=== PATIENT | female | born 1935 | race Caucasian/White ===

== ENCOUNTER 2016-12-11 07:22 | Day surgery (SDC) | payer MEDICARE, OTHER ==
[~2016-12-11] VITALS: Ht 170.2 cm; Wt 84.6 kg
[~2016-12-11 07:22] MED LIST: ASPI-558 PO; CALC600T86 PO; CITA-50 PO; FAMO20TA79 PO; FISH1CAP29 PO; LEVO75TA10 PO; LIDOCAINE 1% (10mg/ml) 2ml SDV INJ ONE; LR 1,000 ML IV SCH; MULT-795 PO
--- OUTSIDE RECORDS SUMMARY | 2016-12-11 07:26 | XMS REPORT | Referral Summary ---
Author Author [facility] Organization [facility] Address Unknown Phone Unavailable Care Team Providers Care Bulk Plant Agent Name Role Phone Oren Webster Primary Care Physician [phone] Encounter [facility] [id number] Date(s): 06/27/15 - 06/27/15 [facility] [address] [place] [address] Discharge Diagnosis: Facial neuritis Discharge Diagnosis: Fatigue Discharge Diagnosis: Oropharyngeal dysphagia Discharge Diagnosis: Hyperthyroidism Discharge Diagnosis: Right knee pain Discharge Diagnosis: GERD (gastroesophageal reflux disease) Discharge Disposition: 01-Home or Self Care Attending Physician: Oren Webster DO Admitting Physician: Oren Webster DO Vital Signs Most recent to 1 oldest [Reference Range]: Temperature Tympanic 36.2 degC [36.6-38.1 degC] *LOW* (06/27/15 1:06 PM) Peripheral Pulse 74 bpm Rate [60-100 bpm] (06/27/15 1:06 PM) Blood Pressure 145/81 mmHg [90-140/60-90 mmHg] *HI* (06/27/15 1:06 PM) Problem List Condition Effective Dates Status Health Status Informant Thyroid Active disease(Confirmed) Hyperthyroidism(Conf 1979 Active [facility]) GERD Active (gastroesophageal reflux disease)(Confirmed) Chicken 1942 Active pox(Confirmed) Allergies, Adverse Reactions, Alerts No Known Allergies Medications amoxicillin 500 mg oral capsule See Instructions, TAKE 4 CAPSULES BY MOUTH 2 HOURS PRIOR TO DENTAL APPOINTMENT , # 4 caps, 2 Refill(s), eRx: [facility] #[id number], TAKE 4 CAPSULES BY MOUTH 2 HOURS PRIOR TO DENTAL APPOINTMENT Start Date: 10/19/14 Status: Ordered aspirin buffered 81 mg oral tablet 1 tabs, Oral, Daily, 0 Refill(s) Start Date: 06/01/14 Status: Ordered Centrum Silver oral tablet 1 tabs, Oral, Daily, 0 Refill(s) Start Date: 06/01/14 Status: Ordered citalopram 20 mg oral tablet 20 mg 1 tabs, Oral, Daily, X 90 days, # 90 tabs, 3 Refill(s), Pharmacy: [facility] #[id number], 1 tabs Oral Daily,x90 days Start Date: 06/27/15 Stop Date: 06/21/16 Status: Ordered ferrous sulfate Oral, 0 Refill(s) Start Date: 06/01/14 Status: Ordered Melatonin Oral, Bedtime (once a day), as needed for insomnia, 0 Refill(s) Start Date: 06/02/14 Status: Ordered omeprazole 20 mg oral delayed release capsule 1 caps, Oral, Daily, # 90 caps, 3 Refill(s), Pharmacy: [facility] #[id number] , 1 caps Oral Daily Start Date: 06/02/14 Status: Ordered predniSONE 20 mg oral tablet 20 mg 1 tabs, Oral, Daily, X 5 days, # 5 tabs, 0 Refill(s), Pharmacy: [facility] #[id number], 1 tabs Oral Daily,x5 days Start Date: 06/27/15 Stop Date: 07/02/15 Status: Ordered Synthroid 100 mcg (0.1 mg) oral tablet See Instructions, TAKE ONE TABLET BY MOUTH EVERY DAY, # 90 tabs, 1 Refill(s), eRx: [facility] #[id number], TAKE ONE TABLET BY MOUTH EVERY DAY Start Date: 02/19/15 Status: Ordered Results Hematology Most recent to 1 oldest [Reference Range]: WBC [4.8-10.8 8.4 10*3/uL 10*3/uL] (06/27/15 2:20 PM) RBC [4.00-5.20] 4.16 (06/27/15 2:20 PM) Hgb [12.0-16.0 13.8 gm/dL gm/dL] (06/27/15 2:20 PM) Hct [37.0-47.0 %] 41.2 % (06/27/15 2:20 PM) MCV [82.0-99.0 fL] 99.0 fL (06/27/15 2:20 PM) MCH [27.0-32.0 pg] 33.2 pg *HI* (06/27/15 2:20 PM) MCHC [32.0-36.0 33.5 gm/dL gm/dL] (06/27/15 2:20 PM) RDW [11.5-14.5 %] 12.5 % (06/27/15 2:20 PM) Platelet [150-400 269 10*3/uL 10*3/uL] (06/27/15 2:20 PM) MPV [8.8-14.8 fL] 11.2 fL (06/27/15 2:20 PM) Immature 0.2 % Granulocytes (06/27/15 2:20 PM) [0.0-1.0 %] Neutrophils [51-75 67 % %] (06/27/15 2:20 PM) Lymphocytes [20-46 22 % %] (06/27/15 2:20 PM) Monocytes [4-11 %] 9 % (06/27/15 2:20 PM) Eosinophils [0-4 %] 2 % (06/27/15 2:20 PM) Basophils [0-2 %] 1 % (06/27/15 2:20 PM) Neutro Absolute 5.56 10*3 [1.90-7.00 10*3] (06/27/15 2:20 PM) Lymph Absolute 1.83 10*3 [0.80-3.30 10*3] (06/27/15 2:20 PM) [place] Absolute 0.76 10*3 [0.30-1.00 10*3] (06/27/15 2:20 PM) Eos Absolute 0.15 10*3 [0.00-0.50 10*3] (06/27/15 2:20 PM) Baso Absolute 0.04 10*3 [0.00-0.20 10*3] (06/27/15 2:20 PM) Chemistry Most recent to 1 oldest [Reference Range]: Sodium Lvl [135-144 140 mEq/L mEq/L] (06/27/15 2:20 PM) Potassium Lvl 5.1 mEq/L [3.5-5.2 mEq/L] (06/27/15 2:20 PM) Chloride [99-111 105 mEq/L mEq/L] (06/27/15 2:20 PM) CO2 [22-31 mEq/L] 27 mEq/L (06/27/15 2:20 PM) AGAP [3-20] 8 (06/27/15 2:20 PM) BUN [10-20 mg/dL] 11 mg/dL (06/27/15 2:20 PM) Glucose Lvl [70-99 105 mg/dL mg/dL] *HI* (06/27/15 2:20 PM) Creatinine Lvl 0.84 mg/dL [0.57-1.11 mg/dL] (06/27/15 2:20 PM) eGFR [>60 mL/min] >60 mL/min 1 (06/27/15 2:20 PM) Calcium Lvl 9.9 mg/dL [8.9-10.5 mg/dL] (06/27/15 2:20 PM) Iron [50-170 mcg/dL] 100 mcg/dL (06/27/15 2:20 PM) Vitamin B12 Lvl 1222 pg/mL [213-816 pg/mL] *HI* (06/27/15 2:20 PM) Folate Lvl [7.0-31.4 20.0 ng/mL ng/mL] (06/27/15 2:20 PM) T4 Free [0.7-1.5 1.3 ng/dL ng/dL] (06/27/15 2:20 PM) TSH with Reflex Free 0.28 T4 [0.35-4.94] *LOW* (06/27/15 2:20 PM) 1Result Comment: Multiply eGFR results by 1.21 for race. Immunizations Vaccine Date Refusal Reason influenza virus vaccine, inactivated1 06/02/14 influenza virus vaccine, live 05/05/13 influenza virus vaccine, live 05/03/12 pneumococcal 13-valent conjugate vaccine 06/02/14 zoster vaccine live 05/03/12 1Result Comment: [06/02/2014] see scaned doc Procedures Procedure Date Related Diagnosis Body Site Colonoscopy1 02/27/11 Esophagogastroduodenoscopy/WNL 09/22/00 Biopsy of breast/right 1Cscope WNL, mod diverticula, fam hx colon ca,per hx adenomatous polyps, repeat cscope in 5yrs 03/26/2006[facility] Social History Social History Type Response Smoking Status Never smoker Assessment and Plan Extracted from: Title: Complex office visit Author: Oren Webster DO Date: 06/27/15 Assessment/Plan Facial neuritis 1. 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 This was discussed in detail with the patient, all questions were answered. 2. We'll start her on prednisone 20 mg daily for 5 days. 3. If this persists we may consider gabapentin 300 mg daily for 2-3 months. Ordered: Office Visit Level 5 Est 60716 Fatigue 1. Her fatigue is likely multifactorial. 2. We'll check CBC to rule out anemia, iron level to rule out iron deficiency, B-12 and folate level to rule out mineral deficiency, vitamin D level to rule out vitamin deficiency. Once we get results we will treat her accordingly. Ordered: predniSONE, 20 mg 1 tabs, Oral, Daily, X 5 days, # 5 tabs, 0 Refill(s), Pharmacy: [facility] #[id number], 1 tabs Oral Daily,x5 days Basic Metabolic Panel CBC w/ Differential Folate Level Iron Level Office Visit Level 5 Est 74418 TSH with Reflex Free T4 Vitamin B12 Level Vitamin D 25 Hydroxy Level GERD (gastroesophageal reflux disease) 1. Diet modification discussed in detail with the patient. 2. Continue with current treatment for acid reflux. 3. Follow-up if worsening presentation. Ordered: Office Visit Level 5 Est 42564 Hyperthyroidism 1. We'll check her TSH and adjust her medication accordingly. Ordered: Office Visit Level 5 Est 42399 Oropharyngeal dysphagia 1. We will check B-12 to rule out deficiency. 2. If this persists then we plan on sending her for barium swallow for further evaluation. Right knee pain Pathophysiology of this presentation, and differential diagnosis, discussed in detail with the patient. All questions were answered. 1. Clinical finding consistent with degenerative arthritis of the knee. 2. Recommended Tylenol at thousand milligrams twice a day. 3. If symptoms persist we may consider knee injection. Patient voiced understanding. Over 45 minutes was spent udiy-li-uarf with this patient addressing all her concerns. Orders: citalopram, 20 mg 1 tabs, Oral, Daily, X 90 days, # 90 tabs, 3 Refill( s), Pharmacy: [facility] #[id number], 1 tabs Oral Daily,x90 days
--- OUTSIDE RECORDS SUMMARY | 2016-12-11 07:27 | XMS REPORT | Referral Summary ---
Author Author [facility] Organization [facility] Address Unknown Phone Unavailable Care Team Providers Care Executive Sales Assistant Name Role Phone Oren Webster Primary Care Physician [phone] Encounter [facility] Date(s): 08/28/16 - 08/28/16 [facility] [address] [place] [address] Discharge Diagnosis: Well woman exam Discharge Diagnosis: Adult onset hypothyroidism Discharge Diagnosis: Mixed anxiety and depressive disorder Discharge Disposition: 01-Home or Self Care Attending Physician: Oren Webster DO Admitting Physician: Oren Webster DO Vital Signs Most recent to 1 oldest [Reference Range]: Peripheral Pulse 86 bpm Rate [60-100 bpm] (08/28/16 1:21 PM) Respiratory Rate 18 br/min [14-20 br/min] (08/28/16 1:21 PM) Blood Pressure 132/90 mmHg [90-140/60-90 mmHg] (08/28/16 1:21 PM) SpO2 98 % (08/28/16 1:21 PM) Problem List Condition Effective Dates Status Health Status Informant Thyroid < 06/01/14 Resolved disease(Confirmed) Hyperthyroidism(Conf 1979 - 06/01/14 Resolved [facility]) GERD Active (gastroesophageal reflux disease)(Confirmed) Chicken 1942 - 06/01/14 Resolved pox(Confirmed) Allergies, Adverse Reactions, Alerts No Known Allergies Medications aspirin buffered 81 mg oral tablet 1 tabs, Oral, Daily, 0 Refill(s) Start Date: 06/01/14 Status: Ordered Centrum Silver oral tablet 1 tabs, Oral, Daily, 0 Refill(s) Start Date: 06/01/14 Status: Ordered citalopram 20 mg oral tablet 20 mg 1 tabs, Oral, Daily, # 90 tabs, 3 Refill(s), Pharmacy: [facility] # [id number], 1 tabs Oral Daily,x90 days Start Date: 08/28/16 Stop Date: 08/23/17 Status: Ordered ferrous sulfate Oral, 0 Refill(s) Start Date: 06/01/14 Status: Ordered levothyroxine 75 mcg (0.075 mg) oral tablet 75 mcg 1 tabs, Oral, Daily, X 90 days, # 90 tabs, 3 Refill(s), Pharmacy: [facility] #[id number], 1 tabs Oral Daily,x90 days Start Date: 08/28/16 Stop Date: 08/23/17 Status: Ordered Melatonin Oral, Bedtime (once a day), as needed for insomnia, 0 Refill(s) Start Date: 06/02/14 Status: Ordered Results Hematology Most recent to 1 oldest [Reference Range]: WBC [4.8-10.8 7.6 10*3/uL 10*3/uL] (08/28/16 2:28 PM) RBC [4.00-5.20] 4.18 (08/28/16 2:28 PM) Hgb [12.0-16.0 13.6 gm/dL gm/dL] (08/28/16 2:28 PM) Hct [37.0-47.0 %] 42.0 % (08/28/16 2:28 PM) MCV [82.0-99.0 fL] 100.5 fL *HI* (08/28/16 2:28 PM) MCH [27.0-32.0 pg] 32.5 pg *HI* (08/28/16 2:28 PM) MCHC [32.0-36.0 32.4 gm/dL gm/dL] (08/28/16 2:28 PM) RDW [11.5-14.5 %] 12.0 % (08/28/16 2:28 PM) Platelet [150-400 271 10*3/uL 10*3/uL] (08/28/16 2:28 PM) MPV [8.8-14.8 fL] 11.0 fL (08/28/16 2:28 PM) Immature 0.3 % Granulocytes (08/28/16 2:28 PM) [0.0-1.0 %] Neutrophils [51-75 56 % %] (08/28/16 2:28 PM) Lymphocytes [20-46 30 % %] (08/28/16 2:28 PM) Monocytes [4-11 %] 10 % (08/28/16 2:28 PM) Eosinophils [0-4 %] 3 % (08/28/16 2:28 PM) Basophils [0-2 %] 0 % (08/28/16 2:28 PM) Neutro Absolute 4.28 [1.90-7.00] (08/28/16 2:28 PM) Lymph Absolute 2.28 [0.80-3.30] (08/28/16 2:28 PM) [place] Absolute 0.78 [0.30-1.00] (08/28/16 2:28 PM) Eos Absolute 0.24 [0.00-0.50] (08/28/16 2:28 PM) Baso Absolute 0.03 [0.00-0.20] (08/28/16 2:28 PM) Chemistry Most recent to 1 oldest [Reference Range]: Sodium Lvl [135-144 141 mEq/L mEq/L] (08/28/16 2:28 PM) Potassium Lvl 4.9 mEq/L [3.5-5.2 mEq/L] (08/28/16 2:28 PM) Chloride [99-111 105 mEq/L mEq/L] (08/28/16 2:28 PM) CO2 [22-31 mEq/L] 27 mEq/L (08/28/16 2:28 PM) AGAP [3-20] 9 (08/28/16 2:28 PM) BUN [10-20 mg/dL] 12 mg/dL (08/28/16 2:28 PM) Glucose Lvl [70-99 88 mg/dL mg/dL] (08/28/16 2:28 PM) Creatinine Lvl 0.90 mg/dL [0.57-1.11 mg/dL] (08/28/16 2:28 PM) eGFR [>60 mL/min] >60 mL/min 1 (08/28/16 2:28 PM) Calcium Lvl 9.8 mg/dL [8.9-10.5 mg/dL] (08/28/16 2:28 PM) Albumin Lvl [3.4-4.8 4.2 gm/dL gm/dL] (08/28/16 2:28 PM) Total Protein 6.6 gm/dL [6.0-7.6 gm/dL] (08/28/16 2:28 PM) Globulin [1.8-4.0 2.4 gm/dL gm/dL] (08/28/16 2:28 PM) ALT [0-55 U/L] 13 U/L (08/28/16 2:28 PM) AST [5-34 U/L] 24 U/L (08/28/16 2:28 PM) Alk Phos [40-150 61 U/L U/L] (08/28/16 2:28 PM) Bili Total [0.2-1.2 0.4 mg/dL mg/dL] (08/28/16 2:28 PM) Chol [0-199 mg/dL] 238 mg/dL *HI* (08/28/16 2:28 PM) Trig [0-149 mg/dL] 130 mg/dL (08/28/16 2:28 PM) HDL [40-84 mg/dL] 70 mg/dL (08/28/16 2:28 PM) LDL [0-130 mg/dL] 142 mg/dL *HI* (08/28/16 2:28 PM) VLDL Cholesterol 26 mg/dL [0-28 mg/dL] (08/28/16 2:28 PM) Cardiac Risk 3.4 [0.0-5.0] (08/28/16 2:28 PM) TSH with Reflex Free 4.74 T4 [0.35-4.94] (08/28/16 2:28 PM) 1Result Comment: Multiply eGFR results by 1.21 for race. Immunizations Given and Recorded Vaccine Date Status Refusal Reason influenza virus vaccine, inactivated1 06/02/14 Recorded influenza virus vaccine, live 05/05/13 Given influenza virus vaccine, live 05/03/12 Given pneumococcal 13-valent conjugate vaccine 06/02/14 Given pneumococcal 23-polyvalent vaccine 08/28/16 Given zoster vaccine live 05/03/12 Given 1Result Comment: [06/02/2014] see scaned doc Procedures Procedure Date Related Diagnosis Body Site Colonoscopy1 8/4/11 Esophagogastroduodenoscopy/WNL 09/22/00 Biopsy of breast/right 1Cscope WNL, mod diverticula, fam hx colon ca,per hx adenomatous polyps, repeat cscope in 5yrs 03/26/2006-cscope wnl 09/22/2000-cscope wnl Social History Social History Type Response Smoking Status Never smoker Assessment and Plan Extracted from: Title: NITHYA Author: Oren Webster DO Date: 08/28/16 Assessment/Plan 1.Well woman exam 1 This is a well-developed well-nourished 80-year-old female in relatively good health. 2. Screening labs ordered, report is pending. 3. She is to schedule her mammogram. 4. Colonoscopy, 10 years from previous. 5. Pneumonia 23 given today. 6. Yearly wellness visit recommended. Ordered: CBC w/ Differential Comprehensive Metabolic Panel Lipid Panel Periodic Comp Preventive Med 65+ years Est 88281 TSH with Reflex Free T4 2.Mixed anxiety and depressive disorder 1. Continue with citalopram 20 mg daily. 2. Follow-up if any new concerns. 3.Adult onset hypothyroidism 1. TSH ordered today, report is pending. 2. Continue with levothyroxine at 75 g daily, we will adjust dose accordingly. Need for vaccination 1. Pneumonia 23 given today, rest of immunizations are up-to-date.
--- OUTSIDE RECORDS SUMMARY | 2016-12-11 07:27 | XMS REPORT | Referral Summary ---
Author Author [facility] Organization [facility] Address Unknown Phone Unavailable Care Team Providers Care Automatic Pinsetter Adjuster Name Role Phone Oren Webster Primary Care Physician [phone] Encounter [facility] Date(s): 11/15/15 - 11/15/15 [facility] [address] [place] [address] Discharge Disposition: 01-Home or Self Care Attending Physician: Oren Webster DO Admitting Physician: Oren Webster DO Vital Signs Most recent to 1 oldest [Reference Range]: Temperature Tympanic 36.3 degC [36.6-38.1 degC] *LOW* (11/15/15 10:41 AM) Peripheral Pulse 75 bpm Rate [60-100 bpm] (11/15/15 10:41 AM) Blood Pressure 160/95 mmHg [90-140/60-90 mmHg] *HI* (11/15/15 10:41 AM) SpO2 96 % (11/15/15 10:41 AM) Problem List Condition Effective Dates Status Health Status Informant Thyroid Active disease(Confirmed) Hyperthyroidism(Conf 1979 Active [facility]) GERD Active (gastroesophageal reflux disease)(Confirmed) Chicken 1942 Active pox(Confirmed) Allergies, Adverse Reactions, Alerts No Known Allergies Medications amoxicillin 500 mg oral capsule See Instructions, TAKE 4 CAPSULES BY MOUTH 2 HOURS PRIOR TO DENTAL APPOINTMENT , # 4 caps, 2 Refill(s), eRx: [facility] #[id number], TAKE 4 CAPSULES BY MOUTH 2 HOURS [...] days, # 90 tabs, 3 Refill(s), Pharmacy: [facility] #[id number], 1 tabs Oral Daily,x90 days Start Date: 06/27/15 Stop Date: 06/21/16 Status: Ordered ferrous sulfate Oral, 0 Refill(s) Start Date: 06/01/14 Status: Ordered levothyroxine 75 mcg (0.075 mg) oral tablet See Instructions, TAKE ONE TABLET BY MOUTH DAILY, # 30 tabs, 9 Refill(s), eRx: [facility] #[id number], TAKE ONE TABLET BY MOUTH DAILY Start Date: 10/25/15 Status: Ordered Melatonin Oral, Bedtime (once a day), as needed for insomnia, 0 Refill(s) Start Date: 06/02/14 Status: Ordered omeprazole 20 mg oral delayed release capsule 1 caps, Oral, Daily, # 90 caps, 3 Refill(s), Pharmacy: [facility] #[id number] , 1 caps Oral Daily Start Date: 06/02/14 Status: Ordered Results No data available for this section Immunizations Vaccine Date Refusal Reason influenza virus [...] Smoking Status Never smoker Assessment and Plan No data available for this section
[2016-12-11 07:47] VITALS: BP 177/83; PULSE 69; RESP 14; TEMP 99.2; O2SAT 93; Ht 170.2 cm; Wt 84.6 kg
--- NOTE | 2016-12-11 08:16 | ANESPREOP ---
Anesthesia Record Date and Time DATE: 12/11/16 TIME: 08:14 Proposed Surgical Procedure COLONOSCOPY NPO since: midnight Allergies: Coded Allergies: NKDA (Verified Allergy, Unknown, 12/11/16) Ht/Wt/BMI Height: 5 ' 7.00 " Weight: 84.600 kg BMI: 29.2 kg/m2 Vital Signs Date Time Temp Pulse Resp B/P Pulse Ox O2 Delivery O2 Flow Rate FiO2 12/11/16 07:47 99.2 69 14 177/83 93 Room Air Medications Inpatient Medications Current Medications Medications (Trade) Dose Ordered Sig/Giuliano Start Time Stop Time Status Last Admin Dose Admin Lactated Ringer's (Lactated Ringers) 1,000 ml @ 30 mls/hr Q24H 12/11/16 07:00 12/11/16 08:06 30 MLS/HR Aspirin (Aspir 81) 81 Mg Tablet.dr, 81 MG PO DAILY, (Reported) Last Taken: on 11/26/16 Calcium Carbonate (Calcium) 600 Mg Tablet, 600 MG PO DAILY, (Reported) Last Taken: on 11/26/16 Citalopram (Celexa) 20 Mg Tablet, 20 MG PO DAILY, ( Reported) Last Taken: on 12/09/16 0800 Famotidine (Pepcid) 20 Mg Tablet, 20 MG PO PRN, (Reported) Last Taken: on Unknown Date & Time Fish Oil/[place]-3 Fatty Acids (Fish Oil 1 ,000 Mg Capsule) 1 Cap Capsule, 1 CAP PO DAILY, (Reported) Last Taken: on 11/26/16 Levothyroxine Sodium (Levothyroxine Sodium) 75 Mcg Tablet, 75 MCG PO ACB, (Reported) Once daily before breakfast. Last Taken: on 12/11/16 0600 Multivitamins W-Minerals/Lut (Centrum Silver Tablet) 1 Tab Tablet, 1 TAB PO DAILY, (Reported) Last Taken: on 11/26/16 Discontinued Medications Levothyroxine Sodium (Synthroid) 112 Mcg Tablet, 112 MCG PO DAILY, (Reported) Currently on Beta Leslie: No Medical/Surgical History Anesthesia PMH: Reports: Reflux (OCC), Thyroid Disease (HYPOTHYROID), Denies: * Angina, *Diabetes, *Hypertension, *DC, Anesthesia Reactions (NO AIRWAY ISSUES), Arthritis, CHF, Cancer, Clotting Problems, Deep Vein Thrombosis, Glaucoma, Malignant Hyperthermia, Renal Disease, Rheumatic Fever, Sleep Apnea Smoking Status: Never smoker Has pt. smoked today?: No Use Chewing Tobacco?: No Second Hand Exposure: No Substance Use Type: does not use Alcohol Intake: none HX of Last Menstrual Period: AGE 47 Past Surgical History Orthopedic Surgeries: Yes - FIRST RIB REMOVAL; LT [facility] Abdominal Surgeries: No Genitourinary Surgeries: No Cardiac Surgeries: Endocrine Surgeries: Reproductive Surgeries: Neurological Surgeries: Ear Surgeries: Nose Surgeries: Throat Surgeries: Other Surgeries: No Family Hx of Anesthesia Advers: none Hx of Motion Sickness: No Airway Assessment Mallampati Score: II TMD: 3 Fingerbreadths Neck Extension: Good ASA: 2 Plan Anesthesia Plan: TIVA Discussion Discussed risks/options/alternatives of anesthesia and questions answered. Patient consents. Nursing pain assessment noted. Attestation Statement Prior to the delivery of any anesthetic medication, I examined the patient, developed the plan, obtained the patient's consent and discussed the risk and benefits of the procedure with the patient/guardian. FAMILIA CONNELL December 11, 2016 08:16
[2016-12-11] MEDS ORDERED: LIDOCAINE 2% (20mg/ml) 5ml PF SDV ONE (09:11)
[2016-12-11] MEDS ORDERED: PROPOFOL 500mg 50 ML IV ONE (09:11)
[2016-12-11 09:42] VITALS: BP 135/65; PULSE 72; RESP 14; TEMP 97.2; O2SAT 95
[2016-12-11 09:57] VITALS: BP 137/83; PULSE 70; RESP 16; O2SAT 95
--- NOTE | 2016-12-11 10:01 | ANESPO ---
Post-Op Note Date 12/11/16 Time: 10:00 Status Pt Participated in Evaluation: Pt participated in person Vital Signs Date Time Temp Pulse Resp B/P Pulse Ox O2 Delivery O2 Flow Rate FiO2 12/11/16 09:42 97.2 72 14 135/65 95 Room Air Respiratory Function: Airway patent, Regular respirations Cardiovascular Function: Regular pulse Mental Status: Alert/oriented Pain Level Intensity: 0 Hydration: Taking po fluids Complications during Recovery None apparent Follow-Up Instructions Instructions Per Surgeon FAMILIA CONNELL December 11, 2016 10:01
[2016-12-11 10:12] VITALS: BP 151/88; PULSE 72; RESP 16; O2SAT 95
--- NOTE | 2016-12-11 15:26 | OPNOTEF ---
DATE OF SERVICE 12/11/2016 SURGEON Javad Luna MD PREOPERATIVE DIAGNOSIS Family history for colon cancer, personal history for adenomatous colon polyps. POSTOPERATIVE DIAGNOSIS Family history for colon cancer, personal history for adenomatous colon polyps, colonic polyp x1 within rectal vault, moderate sigmoid diverticulosis. PROCEDURE Colonoscopy with polypectomy via cold biopsy technique. ANESTHESIA TIVA BRIEF HISTORY/INDICATIONS Mrs. Carbajal is a 81-year-old female who presents today to [facility] to undergo a colonoscopy as a result of her family history for colon cancer within her father as well as secondary to her personal history for adenomatous colon polyps. For completeness please refer to notes included in the patient's chart. FINDINGS Upon colonoscopy, the patient was found to have a moderate number of diverticula within the sigmoid colon region. The patient was found to have a single polyp within the rectal vault that was on the order of about 5-6 mm in diameter and removed in its entirety via cold biopsy technique. There was no evidence for angiodysplastic lesions or henry malignancies. DESCRIPTION OF PROCEDURE After informed consent was obtained, the patient was brought to the endoscopy suite and placed on the table in the left lateral decubitus position. The patient subsequently underwent total intravenous anesthesia by the nurse criminal psychologist per my request. Formal time-out was then completed. Next a digital rectal examination was performed. Normal sphincter tone. No rectal masses were appreciated. An Olympus colonoscope was inserted in the anus and advanced through the lumen of the colon under direction visualization at all times until the cecum was ascertained. Triangulation of teniae coli and ileocecal valve were identified. Scope was then slowly withdrawn again while maintaining visualization of the lumen at all times. As stated above, the entire colon was without evidence for angiodysplastic lesions or henry malignancies. The patient was found to have a moderate number of diverticula within the sigmoid colon region. Once the colonoscope was withdrawn back to the rectal vault one could see a polyp that was on the order of about 5-6 mm in diameter within the midportion of the rectum. This polyp was grasped and removed in its entirety via cold biopsy technique. A J-maneuver was then performed. No worrisome perianal pathology was noted. Scope was allowed to straighten and withdrawn through the anal verge. The patient tolerated the procedure without difficulty and was sent back to the preop area in stable condition. Await the biopsy results from today's single polypectomy and proceed accordingly with further recommendations thereafter. MTDD
== END 2016-12-11 10:38 | disposition home or self-care (01) ==
LOC: SCU 07:22
PROVIDERS: ATTEND Surgery
DX: Z12.11 Encounter for screening for malignant neoplasm of colon (principal); K62.1 Rectal polyp; Z86.010 Personal history of colon polyps; Z80.0 Family history of malignant neoplasm of digestive organs; K57.30 Diverticulosis of large intestine without perforation or abscess without bleeding; K21.9 Gastro-esophageal reflux disease without esophagitis; F41.8 Other specified anxiety disorders; E03.9 Hypothyroidism, unspecified; Z79.82 Long term (current) use of aspirin; Z79.899 Other long term (current) drug therapy
CPT/HCPCS: 45380; 88305; J7120